=== PATIENT | female | born 1965 | race Caucasian/White ===

== ENCOUNTER 2022-02-21 13:51 | Outpatient (REF) | payer OTHER, SELFPAY | END 2022-02-21 13:52 | disposition home or self-care (01) | LOC: HO.LNP 13:51 | PROVIDERS: Visit Provider Internal Medicine | DX: N30.90 Cystitis, unspecified without hematuria (principal) | CPT/HCPCS: 87086; 87147 ==

== ENCOUNTER 2023-06-30 15:26 | Outpatient (AMB) | payer OTHER, SELFPAY ==
--- NOTE | 2023-06-30 16:05 | AM.OFFWIN_ITS ---
Intake Vital Signs 06/30/23 16:06 Weight 169 lb BP 120/72 Blood Pressure Location Rt brachial Position Sitting Pulse 77 Pulse Source Pulse Oximeter Temp 98.1 F Temp Source Temporal Artery Scan Pulse Oximetry (%) 98 Intake Visit Reasons: EST/UTI Intake Note: pt is here for c/o uti Patient Tobacco Use Status: Never used Tobacco Allergies sulfamethoxazole [From BACTRIM] Allergy (Unknown, Verified 06/30/23 16:41) RASH trimethoprim [From BACTRIM] Allergy (Unknown, Verified 06/30/23 16:41) RASH Bactrum Allergy (Unknown, Uncoded 06/30/23 16:41) Rash Medication List - Last Reconciled 06/30/23 by Jefferson Chan MD No Known Home Meds Do you need a note to return to daycare/school/sports/work: Yes HPI EST/UTI HPI Details Patient presents for a sick visit. Reports symptoms of increased frequency of urination, burning on urination and discomfort in the suprapubic area. Symptoms started in the past few days. No fevers or chills. No nausea or vomiting. [facility] Social History Patient Tobacco Use Status: Never used Tobacco Physical Exam Vital Signs: Last Vital Signs Temp 98.1 F 06/30/23 16:06 Pulse 77 06/30/23 16:06 BP 120/72 06/30/23 16:06 Pulse Ox 98 06/30/23 16:06 General: Yes bladder normal to palpation and Yes no CVA tenderness Bimanual exam- vagina & uterus: bladder normal to palpation Back/Spine/Pelvis Back: no CVA tenderness Results AMB Urinalysis, Automated UA Leukoctes 125 Melia/uL Last Edit by Manny Spicer CMA on 06/30/23 16:1 6 UA Nitrite Negative Last Edit by Manny Spicer CMA on 06/30/23 16:16 UA Urobilinogen 0.2 mg/dL Last Edit by Manny Spicer CMA on 06/30/23 16 :16 UA Protein 0 mg/dL Last Edit by Manny Spicer CMA on 06/30/23 16:16 UA pH 7.5 Last Edit by Manny Spicer CMA on 06/30/23 16:16 UA Blood 0 Gilbert/uL Last Edit by Manny Spicer CMA on 06/30/23 16:16 UA Specific [place] 1.005 Last Edit by Manny Spicer CMA on 06/30/23 16:16 UA Ketone Negative Last Edit by Manny Spicer CMA on 06/30/23 16:16 UA Bilirubin 0 mg/dL Last Edit by Manny Spicer CMA on 06/30/23 16:16 UA Glucose 0 mg/dL Last Edit by Manny Spicer, LUKAS on 06/30/23 16:16 Results Reviewed Results Reviewed: Laboratory Last Values Urine pH (Auto) 7.5 06/30/23 16:15 Specific [place] (Auto) 1.005 06/30/23 16:15 Urine Protein (Auto) 0 mg/dL 06/30/23 16:15 Glucose (UA)(Auto) 0 mg/dL 06/30/23 16:15 Urine Ketones (Auto) Negative 06/30/23 16:15 Urine Blood (Auto) 0 [place]/uL 06/30/23 16:15 Urine Nitrite (Auto) Negative 06/30/23 16:15 Urine Bilirubin (Auto) 0 mg/dL 06/30/23 16:15 Urine Urobilinogen (Auto) 0.2 mg/dL 06/30/23 16:15 Leukocyte Esterase (Auto) 125 Melia/uL 06/30/23 16:15 Assessment & Plan Assessment & Plan (1) Cystitis: Code(s): N30.90 - Cystitis, unspecified without hematuria Plan: Take antibiotics and Pyridium as directed. Increase fluid intake. If symptoms of burning persist, new onset of fever or lower back pain, to follow-up at the clinic. Orders: Orders AMB Urinalysis Automated Today Z13.9 - Encounter for screening, unspecified Coding Level of Care Code Est Pt Level 3 (85003) Diagnoses Cystitis N30.90
[2023-06-30 16:06] VITALS: BP 120/72; PULSE 77; TEMP 36.7; O2SAT 98
== END 2023-06-30 16:46 | disposition home or self-care (01) ==
PROVIDERS: PCP Internal Medicine; Visit Provider Internal Medicine
DX: N30.90 Cystitis, unspecified without hematuria (principal); R35.0 Frequency of micturition
CPT/HCPCS: 81003; 99213

== ENCOUNTER 2024-03-08 14:36 | Outpatient (AMB) | payer OTHER, SELFPAY ==
--- NOTE | 2024-03-08 14:57 | MHC.OFFWIV ---
Intake Vital Signs 03/08/24 15:03 Weight 170 lb BP 122/78 Blood Pressure Location Rt brachial Position Sitting Pulse 88 Pulse Source Pulse Oximeter Temp 98.0 F Temp Source Oral Pulse Oximetry (%) 98 Intake Visit Reasons: EP ?UTI Intake Note: pt is here for possible uti Patient Tobacco Use Status: Never used Tobacco Allergies sulfamethoxazole [From BACTRIM] Allergy (Unknown, Verified 03/08/24 14:57) RASH trimethoprim [From BACTRIM] Allergy (Unknown, Verified 03/08/24 14:57) RASH Bactrum Allergy (Unknown, Uncoded 06/30/23 16:41) Rash Do you need a note to return to daycare/school/sports/work: No HPI HPI Comments History of Present Illness Details Patient presents to the walk-in today for sick visit Endorses burning with urination, increased frequency and urgency. Denies back pain, abdominal pain, hematuria, fevers, nausea, diarrhea or vomiting. PFSH Social History Patient Tobacco Use Status: Never used Tobacco Review of Systems Const All systems reviewed & are unremarkable except as noted in HPI and below Physical Exam Vital Signs: Last Vital Signs Temp 98.0 F 03/08/24 15:03 Pulse 88 03/08/24 15:03 BP 122/78 03/08/24 15:03 Pulse Ox 98 03/08/24 15:03 General: awake, alert, oriented. Answers questions appropriately. Fully engaged in examination. Skin: warm, dry, intact HEENT: Normocephalic. Hearing intact. Cardiac: External chest normal in appearance. Respiratory: No cough, audible wheezing or stridor. Abdomen: without gross distension. soft, nontender. no guarding. no CVA tenderness MS: No obvious swelling or deformities. Neurological: Oriented to person, place, time and situation. Thought process intact. Psychiatric: Appropriate mood and affect. Good judgment and insight. Results AMB Urinalysis, Automated UA Leukoctes 15 Melia/uL Last Edit by Manny Spicer CMA on 03/08/24 15:12 UA Nitrite Negative Last Edit by Manny Spicer CMA on 03/08/24 15:12 UA Urobilinogen 0.2 mg/dL Last Edit by Manny Spicer CMA on 03/08/24 15:12 UA Protein 0 mg/dL Last Edit by Manny Spicer CMA on 03/08/24 15:12 UA pH 6.0 Last Edit by Manny Spicer CMA on 03/08/24 15:12 UA Blood 0 [place]/uL Last Edit by Manny Spicer CMA on 03/08/24 15:12 UA Specific [place] 1.015 Last Edit by Manny Spicer CMA on 03/08/24 15:12 UA Ketone Positive Last Edit by Manny Spicer CMA on 03/08/24 15:12 UA Bilirubin 0 mg/dL Last Edit by Manny Spicer CMA on 03/08/24 15:12 UA Glucose 0 mg/dL Last Edit by Manny Spicer CMA on 03/08/24 15:12 Results Reviewed Results Reviewed: Laboratory Last Values Urine pH (Auto) 6.0 03/08/24 15:11 Specific [place] (Auto) 1.015 03/08/24 15:11 Urine Protein (Auto) 0 mg/dL 03/08/24 15:11 Glucose (UA)(Auto) 0 mg/dL 03/08/24 15:11 Urine Ketones (Auto) Positive 03/08/24 15:11 Urine Blood (Auto) 0 [place]/uL 03/08/24 15:11 Urine Nitrite (Auto) Negative 03/08/24 15:11 Urine Bilirubin (Auto) 0 mg/dL 03/08/24 15:11 Urine Urobilinogen (Auto) 0.2 mg/dL 03/08/24 15:11 Leukocyte Esterase (Auto) 15 Melia/uL 03/08/24 15:11 Assessment & Plan Assessment & Plan (1) UTI (urinary tract infection): Code(s): N39.0 - Urinary tract infection, site not specified Plan Macrobid 100 mg p.o. b.i.d. x5 days. Patient advised on use Increase fluid intake. Return to clinic for new fever, back pain or if symptoms persist. Orders: Orders AMB Urinalysis Automated Today Jefferson Chan MD Z13.9 - Encounter for screening, unspecified Medications: New nitrofurantoin monohyd/m-cryst 100 mg (Macrobid) must administer with a meal/food 100 mg PO Q12H 5 days 10 caps 0RF Rekha Zeng, MANAGER TRAINEE, TEXT[employer]ATING MACHINE OPERATOR Coding Level of Care Code Est Pt Level 3 (47959) Diagnoses UTI (urinary tract infection) N39.0
[2024-03-08 15:03] VITALS: BP 122/78; PULSE 88; TEMP 36.7; O2SAT 98
== END 2024-03-08 15:46 | disposition home or self-care (01) ==
PROVIDERS: PCP Internal Medicine; Visit Provider Registered Nurse Emergency
DX: R35.0 Frequency of micturition (principal)
CPT/HCPCS: 81003; 99213

== ENCOUNTER 2024-08-02 15:12 | Emergency (ER) | payer OTHER, SELFPAY ==
--- NOTE | 2024-08-02 15:15 | ED_ITS ---
HPI - Female Genitourinary General Chief complaint: Urogenital-Female Stated complaint: Sent from urgent care - abnormal labs Time Seen by Provider: 08/02/24 20:19 Source: patient, RN notes reviewed and old records reviewed Mode of arrival: ambulatory Limitations: no limitations History of Present Illness ED Provider: Queta CHICAS Narrative: 58-year-old female presents for evaluation of ?a UTI. ? Patient reports that she has had burning with urination for the last week. She went to urgent care 4 days ago and was prescribed Macrobid She has taken the antibiotic as prescribed. However she called the pharmacy because her symptoms were not improving and she was told that the urine culture showed resistance to Macrobid and she would need another antibiotic The patient reports that due to reported chills that she mentioned to the urgent care over the phone she was encouraged to go to the ER for further evaluation The patient has not taken her temperature and has not had a documented fever She denies any cough, shortness of breath, abdominal pain Related Data Previous Rx's ?Medication ?Instructions ?Recorded nitrofurantoin 100 mg PO Q12H 5 days #10 caps 03/08/24 monohydrate/macrocrystals 100 mg capsule (Macrobid) cefuroxime axetil 250 mg tablet 250 mg PO Q12H #14 tabs 08/02/24 Allergies Allergy/AdvReac Type Severity Reaction Status Date / Time sulfamethoxazole Allergy Unknown RASH Verified 08/02/24 15:20 [From BACTRIM] trimethoprim [From BACTRIM] Allergy Unknown RASH Verified 08/02/24 15:20 Bactrum Allergy Unknown Rash Uncoded 06/30/23 16:41 Review of Systems 2 Constitutional: Constitutional: Reports body ache(s), Reports chills, Reports fever(s) and Denies headache(s) Eyes: Eyes: Denies blurry vision ENT: Denies vertigo and Denies headache(s) Cardiovascular: Cardiovascular: Denies chest pain Respiratory: Respiratory: Denies cough Gastrointestinal: Gastrointestinal: Denies abdominal pain Genitourinary: Genitourinary: Reports difficulty voiding, Reports dysuria, Reports pelvic pain and Denies vaginal discharge Musculoskeletal: Musculoskeletal: Denies back pain Integumentary/Breasts: Skin/Breast: Denies rash Neurologic: Denies vertigo and Denies headache(s) [facility] Social History Social History Patient Tobacco Use Status: Never used Tobacco Smoked in Last 30 Days: No Use of substances other than those prescribed or required for medical reasons: No Advance Directives: No Advance Directives Information Provided: No Do you have a plan to hurt others: No Plan Patient : No Physical Exam 2 Vital Signs: Vital Signs: Last Vital Signs Temp 98.6 F 08/02/24 21:29 Pulse 70 08/02/24 21:29 Resp 16 08/02/24 21:29 BP 135/82 08/02/24 21:29 Pulse Ox 96 08/02/24 21:29 O2 Del Method Room Air 08/02/24 21:29 BMI result Body Mass Index 32.9 Const: General: healthy appearing, comfortable, no acute distress, alert and awake Nutritional Appearance: well nourished Orientation/consciousness: p atient oriented x3 HEENT: Head: Yes normocephalic and Yes atraumatic Neck: Neck: Yes full ROM Resp: Effort & Inspection: normal respiratory effort, able to speak in complete sentences and not labored GI: Other: No CVA tender Inspection: No distended Palpation (GI): Soft to palpation, not firm, nontender, no guarding and not rigid Skin: General skin exam: elasticity normal Neuro: General: patient oriented x3 Cranial nerves: Yes Bilaterally intact EOM present Cognition (Neuro): normal cognition Course Course Course Narrative: This is a Rapid Medical Exam performed in triage by Diana Forrest PA-C. Full HPI, ROS and PE to be performed by primary ED provider. 58 yo F presenting to the ED c/o fever, myalgias, chills, w/recent UTI. Went to Urgent Care last and was Dx with UTI was started on Macrobid which today she was told was not going to cover & sent to the ED today. ? grew Pseudomanas. Took Tylenol & Motrin around 10AM PE: nontoxic appearing, ambulatin w/steady gait Plan: Labs, UA, blood Cx Medical Decision Making Medical Decision Making MDM Narrative: 58-year-old female with past medical history as documented above presents for evaluation of UTI symptoms with subjective fevers and chills. She is afebrile on arrival to the ED, afebrile throughout her stay. She is not tachycardic or hypotensive. She has no leukocytosis and a normal lactic acid. There was no evidence of sepsis. She appears quite comfortable, has no CVA tenderness, plan to change the patient's antibiotic to cefuroxime, she was encouraged to discontinue her Macrobid Differential Diagnosis Differential Diagnoses: The differential diagnosis associated with the presentation includes UTI Pyelonephritis Obstructive uropathy Abdominal pain Lab Data MDM Lab Attestation statement: I reviewed the patient's lab results. No leukocytosis or anemia. Normal platelet count. No electrolyte abnormalities 08/02/24 16:29 08/02/24 16:29 Labs: Lab Results 08/02/24 Range/Units 16:29 WBC 6.0 (4.8-10.8) X10*3/uL RBC 3.99 L (4.20-5.50) X10*6/uL Hgb 13.5 (12.0-16.0) g/dl Hct 38.5 (37.0-47.0) % MCV 96.5 (80.0-98.0) fL MCH 33.8 H (27.0-33.0) pg MCHC 35.1 H (31.0-35.0) g/dl RDW 12.3 (11.0-16.0) % Plt Count 192 (160-400) X10*3/uL MPV 9.7 (9.4-12.3) fL Immature Gran % (Auto) 0.3 (0.0-0.4) % Neut % (Auto) 74.1 H (45-73) % Lymph % (Auto) 10.1 L (20-40) % [place] % (Auto) 6.2 (2-11) % Eos % (Auto) 8.6 H (0-4) % Baso % (Auto) 0.7 (0-2) % Lymph # (Auto) 0.6 L (1.2-4.9) X10*3/uL [place] # (Auto) 0.4 (0.1-1.2) X10*3/uL Eos # (Auto) 0.5 H (0.0-0.4) X10*3/uL Baso # (Auto) 0.0 (0.0-0.2) X10*3/uL Abs Immat Gran (auto) 0.02 (0.00-0.03) X10*3/uL Absolute Neuts (auto) 4.4 (2.0-8.3) x10*3/uL Absolute Nucleated RBC 0.000 (0.0-0.012) X10*3/uL Nucleated RBC % (auto) 0.0 (0.0-0.2) /100WBC Sodium 140 (135-145) mmol/L Potassium 4.0 (3.3-5.1) mmol/L Chloride 104 (96-108) mmol/L Carbon Dioxide 27 (22-29) mmol/L Anion Gap 13 (12-20) BUN 8 L (9-16) mg/dL Creatinine 0.78 (0.5-1.4) mg/dL Estim Creat Clear Calc 76.8 Estimated GFR > 60 Random Glucose 99 (60-115) mg/dL Calcium 9.8 (8.4-10.2) mg/dL Magnesium 1.7 (1.6-2.6) mg/dL Total Bilirubin 0.5 (0.0-1.0) mg/dL Direct Bilirubin 0.2 (0.0-0.5) mg/dL AST 67 H (5-31) U/L ALT 65 H (0-31) U/L Alkaline Phosphatase 140 H (39-117) U/L Total Protein 7.5 (6.5-8.0) g/dL Albumin 4.0 (3.5-5.0) g/dL Lipase 45 (8-78) U/L Urine Color Yellow Urine Appearance Clear Urine pH 6.5 (5.0-9.0) Ur Specific [place] <= 1.005 (1.005-1.025) Urine Protein Negative (Neg-Trace) mg/dL Urine Glucose (UA) Negative (Negative) mg/dL Urine Ketones Negative (Negative) mg/dL Urine Blood Negative (Negative) Urine Nitrite Negative (Negative) Ur Leukocyte Esterase Moderate (2+) H (Negative) Urine RBC 0-2 (0-2) /HPF Urine WBC 6-10 H (0-5) /HPF Ur Squamous Epith Cells 3-5 (0-2) /HPF Urine Bacteria None Seen (None Seen) Hyaline Casts 0-2 (0-2) /LPF Discharge Plan Discharge Clinical Impression: UTI (urinary tract infection) Patient Disposition: Home, Self-Care Instructions: Urinary Tract Infection in Women (ED) Additional Instructions: Stop the Macrobid. You may use cefuroxime twice daily for 1 week Hydrate well Follow-up with your primary doctor, return for new or worsening symptoms Prescriptions: New cefuroxime axetil 250 mg tablet 250 mg PO Q12H Qty: 14 0RF No Action nitrofurantoin monohyd/m-cryst [Macrobid] 100 mg capsule 100 mg PO Q12H 5 Days Qty: 10 0RF Rx Instructions: must administer with a meal/food Interventions: ED Discharge Assessment Last Done: 08/02/24 21:29 Discharge Date/Time: 08/02/24 21:30 Print Language: Romanian
[2024-08-02 15:16] VITALS: BP 122/81; PULSE 95; RESP 18; TEMP 36.9; O2SAT 96; BMI 32.9
[2024-08-02 16:34] LABS: MANUAL DIFF FLAG NO
[2024-08-02 16:35] LABS: Basophils Percent Auto 0.7 % (0-2); Eosinophils Absolute Auto 0.5 X10*3/uL (0.0-0.4); Eosinophils Percent Auto 8.6 % (0-4); Hematocrit 38.5 % (37.0-47.0); Hemoglobin 13.5 g/dl (12.0-16.0); Imm Gran Abs Auto 0.02 X10*3/uL (0.00-0.03); Imm Gran Pct Auto 0.3 % (0.0-0.4); Lymphocytes Absolute Auto 0.6 X10*3/uL (1.2-4.9); Lymphocytes Percent Auto 10.1 % (20-40); Mean Corpuscular HGB Conc 35.1 g/dl (31.0-35.0); Mean Corpuscular Hemoglobin 33.8 pg (27.0-33.0); Mean Corpuscular Volume 96.5 fL (80.0-98.0); Mean Platelet Volume 9.7 fL (9.4-12.3); Monocytes Absolute Auto 0.4 X10*3/uL (0.1-1.2); Monocytes Percent Auto 6.2 % (2-11); Neutrophils Absolute Auto 4.4 x10*3/uL (2.0-8.3); Neutrophils Percent Auto 74.1 % (45-73); Platelet Count 192 X10*3/uL (160-400); Red Blood Count 3.99 X10*6/uL (4.20-5.50); Red Cell Distribution Width 12.3 % (11.0-16.0)
[2024-08-02 16:49] LABS: Alanine Aminotransferase 65 U/L (0-31); Alkaline Phosphatase 140 U/L (39-117); Anion Gap 13 (12-20); Aspartate Amino Transferase 67 U/L (5-31); Bilirubin Direct 0.2 mg/dL (0.0-0.5); Bilirubin Total 0.5 mg/dL (0.0-1.0); Blood Urea Nitrogen 8 mg/dL (9-16); Calcium 9.8 mg/dL (8.4-10.2); Carbon Dioxide 27 mmol/L (22-29); Chloride 104 mmol/L (96-108); Creatinine Clr Calc Pharmacy 76.8; Estimated Glomerular Filt Rate > 60; Glucose Random 99 mg/dL (60-115); Lipase 45 U/L (8-78); Magnesium 1.7 mg/dL (1.6-2.6); Sodium 140 mmol/L (135-145); Total Protein 7.5 g/dL (6.5-8.0)
[2024-08-02 16:51] LABS: Appearance Urine Clear; Color Urine Yellow; Glucose Urine UA Negative (Negative); Leukocyte Esterase Urine Moderate (2+) (Negative); Nitrite Urine Negative (Negative); PH 6.5 (5.0-9.0); Specific Gravity - Urine <= 1.005 (1.005-1.025); UMIC TRIGGER UACC YES; Urine Blood Negative (Negative); Urine Ketones Negative (Negative); Urine Protein Negative (Neg-Trace)
[2024-08-02 17:17] LABS: Bacteria Urine None Seen (None Seen); Hyaline Casts Urine 0-2 /LPF (0-2); RBC Urine 0-2 /HPF (0-2); UACC Culture Trigger YES
[2024-08-02 19:49] VITALS: BP 141/92; PULSE 94; RESP 16; TEMP 36.5; O2SAT 97
--- NOTE | 2024-08-02 19:54 | PC.NURSE ---
pt from lobby, assume care of pt at this time
[2024-08-02 21:27] VITALS: BP 135/82; PULSE 70; RESP 16; TEMP 37; O2SAT 96
[2024-08-02 21:29] VITALS: BP 135/82; PULSE 70; RESP 16; TEMP 37; O2SAT 96
== END 2024-08-02 21:30 | disposition home or self-care (01) ==
PROVIDERS: Physician Assistant; Emergency Provider Internal Medicine; PCP Internal Medicine
DX: N39.0 Urinary tract infection, site not specified (principal); Z79.899 Other long term (current) drug therapy
CPT/HCPCS: 36415; 80048; 80076; 81001; 81003; 83690; 83735; 85025; 87040; 87086; 87088; 87186; 99283; 99284